=== PATIENT | female | born 2000 | race Caucasian/White ===

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

== ENCOUNTER → 2022-03-19 04:33 | Observation (INO) ==
[2022-03-19 03:38] LABS: Candida DNA Not Detected (Not Detect); Gardnerella DNA Not Detected (Not Detect); Trichomonas DNA Not Detected (Not Detect)
== END | disposition home or self-care (01) ==
LOC: 1NENULAB
PROVIDERS: ADMIT Advanced Practice Midwife; ATTEND Advanced Practice Midwife

== ENCOUNTER 2022-04-13 01:27 | Observation (INO) ==
[2022-04-13] MEDS ORDERED: Ringers Solution, Lactated 1,000 ML ONE ×2 (02:24→03:59)
[2022-04-13 02:54] LABS: Bacteria,Urine Few per hpf (None-Few); Bilirubin,Urine Negative (Negative); Blood,Urine Negative (Negative); Clarity,Urine Turbid (Clear); Color,Urine Yellow (Yellow); Glucose,Urine (UA) Normal (Normal); Ketones,Urine >150 mg/dL (Negative); Leukocyte Esterase,Urine Moderate (Negative); Mucus,Urine Many per lpf (None-Few); Nitrite,Urine Negative (Negative); PH,Urine 6.5 pH Units (5.0-8.0); Protein,Urine 50 mg/dL (Neg-Trace); RBC,Urine 0-3 per hpf (0-3); Specific Gravity,Urine 1.029 (1.010-1.025); Squamous Epithelial Cell,Urine Few per hpf (None-Few); Urobilinogen,Urine Normal (Normal); WBC,Urine 0-3 per hpf (0-3)
[2022-04-13] MEDS ORDERED: Morphine Sulfate 2 MG/ML SYRINGE IVP ONE (04:17)
== END 2022-04-13 09:25 | disposition home or self-care (01) ==
LOC: 1NENULAB
PROVIDERS: ADMIT Obstetrics & Gynecology; ATTEND Obstetrics & Gynecology

== ENCOUNTER → 2022-04-14 16:55 | Observation (INO) | END | disposition home or self-care (01) | LOC: 1NENULAB | PROVIDERS: ADMIT Advanced Practice Midwife; ATTEND Advanced Practice Midwife ==

== ENCOUNTER 2022-04-25 06:44 | Inpatient (IN) ==
[~2022-04-25 06:44] MED LIST changes: +CeFAZolin 2,000 MG/120 ML BAG IVPB ONE; +Famotidine 20 MG/2 ML VIAL IVP ONE; -Famotidine 20 MG/2 ML VIAL IVP PRN; -Lidocaine 1% 20 ML MDV INFILT PRN; +Metoclopramide 10 MG/2 ML VIAL IVP ONE; -Metoclopramide 10 MG/2 ML VIAL IVP PRN; +Morphine Sulfate 2 MG/ML SYRINGE IVP ONE; -Naloxone 0.4 MG/ML INJ IVP PRN; -Ondansetron 4 MG/2 ML VIAL IVP PRN; +Ringers Solution, Lactated 1,000 ML IVC ONE; +Ringers Solution, Lactated 1,000 ML ONE
[2022-04-25] MEDS ORDERED: Oxytocin 30 UNIT/503 ML BAG IVC SCH (06:45)
[2022-04-25] MEDS ORDERED: Azithromycin 500 MG in 0.9 % Sodium Chloride 250 ML IVPB ONE (07:02)
[2022-04-25 07:09] LABS: Basophils # 0.1 K/mcL (0.0-0.2); Basophils % 0.6 %; Eosinophils # 0.1 K/mcL (0.0-0.6); Hematocrit 32.7 % (35.3-44.9); Hemoglobin 9.9 g/dL (11.5-15.4); Immature Granulocytes % 0.8 % (0-4); Lymphocytes % 24.5 %; Mean Corpuscular HGB Conc 30.3 g/dL (31.6-35.5); Mean Corpuscular Hemoglobin 23.1 pg (28.0-33.3); Mean Corpuscular Volume 76.2 fL (83.0-100.0); Mean Platelet Volume 10.3 fL (9.4-12.4); Monocytes # 0.8 K/mcL (0.0-1.3); Monocytes % 10.2 %; Platelet Count 259 K/mcL (140-400); Red Blood Count 4.29 M/mcL (3.82-4.97); Red Cell Distribution Width 15.3 % (11.5-14.5); Segmented Neutrophils % 62.9 %
[2022-04-25] MEDS ORDERED: *HR* HYDROmorphone PF 0.5 MG/0.5 ML SYRINGE IVP PRN (07:25)
[2022-04-25] MEDS ORDERED: Ondansetron 4 MG/2 ML VIAL IVP PRN ×2 (07:25→12:22)
[2022-04-25] MEDS ORDERED: Promethazine 6.25 MG in Water for inj. (sterile) 20 ML IVPB PRN (07:25)
[2022-04-25] MEDS ORDERED: *HR* FentaNYL (PF) 100 MCG/2 ML VIAL ONE (07:29)
[2022-04-25] MEDS ORDERED: EPHEDrine 50 MG/ML VIAL ONE (07:29)
[2022-04-25] MEDS ORDERED: *HR* Morphine Sulfate/PF 10 MG/10 ML AMPUL ONE (07:29)
[2022-04-25] MEDS ORDERED: Ketorolac 30 MG/ML VIAL ONE (07:30)
[2022-04-25] MEDS ORDERED: Ondansetron 4 MG/2 ML VIAL ONE (07:30)
[2022-04-25] MEDS ORDERED: Acetaminophen IV 1,000 MG/100 ML BAG IVPB ONE (07:30)
[2022-04-25] MEDS ORDERED: Ringers Solution, Lactated 1,000 ML ONE (08:43)
[2022-04-25 09:38] LABS: Amphetamine Screen,Urine Negative ng/mL (Cutoff=1000); Barbiturate Screen,Urine Negative ng/mL (Cutoff=200); Benzodiazepines Screen,Urine Negative ng/mL (Cutoff=200); Cannabinoid Screen,Urine Negative ng/mL (Cutoff = 50); Cocaine Screen,Urine Negative ng/mL (Cutoff= 300); Opiate Screen,Urine Negative ng/mL (Cutoff=300); Phencyclidine Screen,Urine Negative ng/mL (Cutoff=25)
[2022-04-25] MEDS ORDERED: Simethicone 80 MG TAB.CHEW PO PRN (12:22)
[2022-04-25] MEDS ORDERED: OXYTOCIN/RINGERS LACTATE 10 UNIT/166.6 ML BAG IVC ONE (12:22)
[2022-04-25] MEDS ORDERED: Naloxone 0.4 MG/ML INJ IVP PRN (12:22)
[2022-04-25] MEDS ORDERED: *HR* OxyCODONE Immed Rel 5 MG TABLET PO PRN (12:22)
[2022-04-25] MEDS ORDERED: 0.9 % Sodium Chloride 1,000 ML IVC SCH (12:22)
[2022-04-25] MEDS ORDERED: Metoclopramide 10 MG/2 ML VIAL IVP PRN (12:22)
[2022-04-25] MEDS ORDERED: Rho Immune Globulin 1,500 UNIT SYRINGE IM ONE (12:22)
[2022-04-25] MEDS: Ibuprofen 600 MG TABLET PO SCH ×2 (12:28→21:00)
[2022-04-25] MEDS: Acetaminophen 325 MG TABLET PO SCH ×2 (17:00→23:36)
[2022-04-26] MEDS: Ibuprofen 600 MG TABLET PO SCH ×2 (04:05→14:40)
[2022-04-26 04:42] LABS: Basophils % 0.3 %; Eosinophils # 0.1 K/mcL (0.0-0.6); Eosinophils % 0.5 %; Hematocrit 24.9 % (35.3-44.9); Hemoglobin 7.6 g/dL (11.5-15.4); Immature Granulocytes % 0.6 % (0-4); Immature Platelets 7.1 % (1.1-6.1); Lymphocytes # 2.3 K/mcL (0.6-4.6); Lymphocytes % 19.9 %; Mean Corpuscular HGB Conc 30.5 g/dL (31.6-35.5); Mean Corpuscular Hemoglobin 23.4 pg (28.0-33.3); Mean Corpuscular Volume 76.6 fL (83.0-100.0); Mean Platelet Volume 11.1 fL (9.4-12.4); Monocytes # 1.1 K/mcL (0.0-1.3); Monocytes % 9.8 %; Neutrophils # 7.9 K/mcL (1.6-8.9); Nucleated Red Blood Cells 0.2 /100 WBC (0); Platelet Count 212 K/mcL (140-400); Red Blood Count 3.25 M/mcL (3.82-4.97); Red Cell Distribution Width 15.1 % (11.5-14.5); Segmented Neutrophils % 68.9 %; White Blood Count 11.5 K/mcL (4.3-11.1)
[2022-04-26] MEDS: Acetaminophen 325 MG TABLET PO SCH ×2 (06:07→14:40)
[2022-04-26] MEDS ORDERED: Prenatal Vit/FA 1 EACH TABLET PO SCH (09:00)
[2022-04-26 15:23] VITALS: BP 123/75; PULSE 86; TEMP 98; O2SAT 98
== END 2022-04-26 16:12 | disposition home or self-care (01) | DRG 540 ==
LOC: 1NENULAB → 1NENUOBS 11:59
PROVIDERS: ADMIT Registered Nurse; ATTEND Registered Nurse